=== PATIENT | female | born 1960 | race Two or more races ===

== ENCOUNTER 2022-04-02 23:39 | Emergency (ER) | payer MEDICARE, MEDICAID ==
[~2022-04-02] VITALS: Ht 175.3 cm; Wt 72.4 kg
[2022-04-03 01:34] LABS: INR 0.87 (0.9-1.15); Partial Thromboplastin Time 25.7 sec (24.6-33.4)
[2022-04-03 01:38] LABS: Albumin 3.5 g/dL (3.4-5.0); Calcium 8.1 mg/dL (8.5-10.1); Potassium 3.8 mmol/L (3.5-5.1)
[2022-04-03 01:41] LABS: BUN/Creatinine Ratio 23.9
[2022-04-03 01:43] LABS: Bilirubin, Total 0.5 mg/dL (0.2-1.0); Total Protein 6.1 g/dL (6.4-8.2)
[2022-04-03 01:50] LABS: Hematocrit 26.5 % (36.0-46.0); Hemoglobin 9.6 g/dL (12.2-16.2); Mean Corpuscular Hemoglobin 32.9 pg (28.0-32.0); Mean Corpuscular Hgb Conc. 36.1 g/dL (32.0-36.0); Mean Corpuscular Volume 91.3 fL (80.0-100.0); Red Cell Distribution Width 11.9 % (11.8-14.3)
[2022-04-03 01:53] LABS: White Blood Cell 1.4 10^3/uL (4.4-10.8)
[2022-04-03 01:55] LABS: Basophils % (manual) 0 (0.0-2.0); Blast Cells 0; Eosinophils % (manual) 0 (0-7); Metamyelocytes % 0; Myelocytes % 0; Promyelocytes % 0; Reactive Lymphocytes 0
[2022-04-03 02:09] LABS: Band Neutrophils % (manual) 4; Lymphocytes % (manual) 15 (10.0-50.0); Monocytes % (manual) 26 (0-12)
[2022-04-03 02:50] VITALS: BP 115/42
== END 2022-04-03 03:05 | disposition home or self-care (01) ==
LOC: ER 23:39
DX: R07.89 Other chest pain (principal); D64.9 Anemia, unspecified; Z88.8 Allergy status to other drugs, medicaments and biological substances
CPT/HCPCS: 36415; 71045; 80053; 83880; 84484; 85007; 85027; 85610; 85730